=== PATIENT | male | born 1955 | race Two or more races ===

== ENCOUNTER 2017-07-21 11:24 | Emergency (ER) | payer OTHER ==
[~2017-07-21] VITALS: Ht 185.4 cm; Wt 90.7 kg
--- NOTE | 2017-07-21 11:30 | NUR ---
PATIENT TO ED DT CHRONICLEFT SIDE OF NECK PAIN WORST X 1 WEEK, DENIES INJURY, 04/10, ACHING. PATIENT IS AAO4. APPEARS IN NO APPARENT DISTESS. RESPIRATION EVEN AND UNLABORED. SKIN IS WARM TO TOUCH AND NON DIAPHORETIC. AFEBRILE. VSS
[2017-07-21 11:49] VITALS: BP 120/80
--- NOTE | 2017-07-21 11:49 | NUR ---
Patient discharged to home in stable condition. Written and verbal after care instructions given. Patient verbalizes understanding of instruction.
== END 2017-07-21 11:50 | disposition home or self-care (01) ==
LOC: ER 11:26
DX: S13.4XXA Sprain of ligaments of cervical spine, initial encounter (principal); G89.29 Other chronic pain; X58.XXXA Exposure to other specified factors, initial encounter; Y93.89 Activity, other specified; Y92.89 Other specified places as the place of occurrence of the external cause; Y99.8 Other external cause status
CPT/HCPCS: 99281; A4606; Z7610; Z7502